=== PATIENT | female | born 1960 | race Caucasian/White ===

== ENCOUNTER 2024-07-04 07:19 | Inpatient (IN) | payer BC ==
[~2024-07-04] VITALS: Ht 162.6 cm; Wt 74.2 kg
[2024-07-04 08:22] LABS: BILIRUBIN,URINE MODERATE (Neg); CLARITY,URINE CLEAR (Clear); GLUCOSE, URINE NEGATIVE (Neg); KETONES,URINE TRACE mg/dl (Neg); LEUKOCYTE ESTERASE ,URINE NEGATIVE (Neg); NITRITES, URINE NEGATIVE (Neg); OCCULT BLOOD,URINE TRACE-INTACT (Neg); PROTEIN,URINE TRACE mg/dl (Neg); UROBILINOGEN,URINE 0.2 E.U/dL (0.2-1.0)
[2024-07-04 08:31] LABS: COLOR,URINE DARK YELLOW (Yellow)
[2024-07-04 08:32] LABS: MUCUS STRANDS FEW /LPF (Neg); SQUAMOUS EPITHELIAL CELL,UR FEW /LPF (FEW); UA COLLECTION TYPE CLN CATCH MIDSTREAM
[2024-07-04 08:33] LABS: BACTERIA,URINE 1+ /HPF (Neg); TRANSITIONAL EPI CELLS,URINE FEW /HPF
[2024-07-04 08:41] LABS: BASOPHILS % (AUTO) 0.1 % (0-1); EOSINOPHILS % (AUTO) 0.1 % (0-6); HEMATOCRIT 43.2 % (35.0-45.0); HEMOGLOBIN 14.3 g/dl (12.0-16.0); LYMPHOCYTES # (AUTO) 1.7 X10'3 (1.1-4.8); LYMPHOCYTES % (AUTO) 8.9 % (21-51); MEAN CORPUSCULAR HEMOGLOBIN 30.9 PG (27.0-31.0); MEAN CORPUSCULAR VOLUME 93.7 FL (78-98); MEAN PLATELET VOLUME 7.8 FL (7.4-10.4); MONOCYTES # (AUTO) 0.9 X10'3 (0-0.9); MONOCYTES % (AUTO) 4.9 % (2-12); NEUTROPHILS # (AUTO) 16.8 X10'3 (1.8-7.7); PLATELET COUNT 367 X10'3 (140-440); RED BLOOD COUNT 4.62 X10'6 (4.20-5.60); RED CELL DISTRIBUTION WIDTH 14.4 % (11.5-14.5); WHITE BLOOD COUNT 19.5 X10'3 (4.5-11.0)
[2024-07-04 08:50] LABS: ALANINE AMINOTRANSFERASE 492 U/L (12-78); ALBUMIN 3.2 G/DL (3.4-5.0); ALKALINE PHOSPHATASE 112 IU/L (46-116); ANION GAP 5 (8-16); ASPARTATE AMINO TRANSFERASE 291 U/L (10-37); BILIRUBIN,TOTAL 6.2 MG/DL (0.1-1.0); BLOOD UREA NITROGEN 9 MG/DL (7-18); BUN/CREATININE RATIO 8.3 (10.0-20.0); CALCIUM 8.5 MG/DL (8.5-10.1); CHLORIDE 101 MMOL/L (99-107); CREATININE 1.08 MG/DL (0.40-0.90); GLUCOSE 104 MG/DL (70-104); HDL CHOLESTEROL 77 MG/DL (35-60); LDL CHOLESTEROL 75 MG/DL (50-100); POTASSIUM 3.9 MMOL/L (3.5-5.1); SODIUM 136 MMOL/L (135-145); TOTAL CARBON DIOXIDE 30.1 MMOL/L (24-32); eCRCL 45 ML/MIN; eGFR 51 ML/MIN
[2024-07-04 08:52] LABS: CHOL/HDL RATIO 2.1 (0.00-4.99); CHOLESTEROL 162 MG/DL (0-200); TOTAL PROTEIN 6.5 G/DL (6.4-8.2); TRIGLYCERIDES 47 MG/DL (20-135)
[2024-07-04] MEDS: normal saline 1000ml 1,000 ML IV ONE (09:05)
[2024-07-04] MEDS: piperacillin/tazo 4.5gm/100ml 100 ML IV STA (09:36)
[2024-07-04] MEDS ORDERED: NO HOME MEDS (09:52)
[2024-07-04] MEDS ORDERED: magnesium Cl slow-release 64mg tablet PO PRN (10:00)
[2024-07-04] MEDS ORDERED: magnesium sulf-water 4G/100mL 100 ML IV PRN (10:00)
[2024-07-04] MEDS ORDERED: mag hydrox/Alum hydrox/simeth 30ml oral suspension PO PRN (10:00)
[2024-07-04] MEDS ORDERED: potassium Cl 20 mEq SR tablet PO PRN (10:00)
[2024-07-04] MEDS ORDERED: magnesium sulf-water 2g/50mL 50 ML IV PRN (10:00)
[2024-07-04] MEDS ORDERED: ondansetron/PF 4mg/2ml inj IV PRN ×2 (10:00→16:10)
[2024-07-04] MEDS ORDERED: magnesium hydroxide 30ml (MOM) UD suspension PO PRN (10:00)
[2024-07-04] MEDS ORDERED: potassium Cl 40MEQ/1/2NS 520ml 520 ML IV PRN (10:00)
[2024-07-04] MEDS: normal saline 1000ml 1,000 ML IV SCH (10:13)
[2024-07-04 10:16] LABS: APTT 26 SECONDS (22-32); INR 1.3 INR; PROTHROMBIN TIME 12.9 SECONDS (9.0-12.0)
[2024-07-04 10:38] LABS: MAGNESIUM 2.1 MG/DL (1.5-2.4)
[2024-07-04 10:49] LABS: HEMOGLOBIN A1C 5.5 % (4.5-6.2)
[2024-07-04 12:50] VITALS: BP 109/67; PULSE 95; RESP 16; TEMP 98.8; O2SAT 98
[2024-07-04 14:06] VITALS: RESP 16
[2024-07-04] MEDS ORDERED: iohexol 300mg/ml 100ml inj. ONE ×2 (15:12)
[2024-07-04] MEDS ORDERED: glucagon, human recombinant 1mg kit ONE (15:12)
[2024-07-04] MEDS ORDERED: morphine 4 MG/ML inj SYRINge IV PRN (16:10)
[2024-07-04] MEDS ORDERED: fentaNYL/PF 50MCG/1 ML 2ML syringe IV PRN ×2 (16:10)
[2024-07-04] MEDS ORDERED: morphine 2 MG/ML inj. syringe IV PRN (16:10)
[2024-07-04] MEDS ORDERED: ringers solution, lacted 1,000 ML IV SCH (16:10)
[2024-07-04] MEDS ORDERED: labetalol 20mg/4ml (5mg/ml) syringe IV PRN (16:10)
[2024-07-04] MEDS ORDERED: hydrALAZINE 20mg/ml inj. IV PRN (16:10)
[2024-07-04] MEDS ORDERED: propofol inj 20 ML IV ONE (16:20)
[2024-07-04] MEDS ORDERED: LIDOcaine 2% (20mg/ml) 5ml vial ONE (16:20)
[2024-07-04] MEDS ORDERED: fentaNYL/PF 50MCG/1 ML 2ML syringe ONE (16:20)
[2024-07-04] MEDS ORDERED: midazolam 1 mg/ML 2ml injection ONE (16:20)
[2024-07-04] MEDS ORDERED: succinylcholine 20mg/ml inj IV ONE (16:21)
[2024-07-04] MEDS ORDERED: ondansetron/PF 4mg/2ml inj ONE (16:21)
[2024-07-04] MEDS ORDERED: dexamethasone sod phosphate 4mg/ml inj. ONE (16:21)
[2024-07-04] MEDS: piperacillin/tazo 4.5gm/100ml 100 ML IV SCH (17:01)
[2024-07-04 17:22] VITALS: RESP 16; O2SAT 98
[2024-07-04] MEDS: acetaminophen 325mg tablet PO PRN (17:59)
[2024-07-04] MEDS: metoclopramide 5 mg/ml inj IV PRN (18:02)
[2024-07-04] MEDS: K and/or MAG REPLACEMENT MC SCH (19:44)
[2024-07-04 20:00] VITALS: RESP 16
[2024-07-04] MEDS ORDERED: heparin, porcine 5000 units/ml vial SQ SCH (20:00)
[2024-07-04 22:00] VITALS: BP 119/67; PULSE 80; RESP 16; TEMP 97.8; O2SAT 100
[2024-07-05] VITALS (22 sets, daily range): BP systolic 111–159; BP diastolic 62–87; PULSE 81–105; RESP 12–22; TEMP 97.7–98.5; O2SAT 92–99
[2024-07-05 07:28] LABS: BASOPHILS % (AUTO) 0.3 % (0-1); EOSINOPHILS # (AUTO) 0.2 X10'3 (0-0.9); EOSINOPHILS % (AUTO) 1.9 % (0-6); HEMATOCRIT 39.6 % (35.0-45.0); HEMOGLOBIN 13.6 g/dl (12.0-16.0); LYMPHOCYTES # (AUTO) 1.9 X10'3 (1.1-4.8); LYMPHOCYTES % (AUTO) 16.7 % (21-51); MEAN CORPUSCULAR HEMOGLOBIN 31.8 PG (27.0-31.0); MEAN CORPUSCULAR HGB CONC 34.4 g/dL (33.0-36.5); MEAN CORPUSCULAR VOLUME 92.3 FL (78-98); MEAN PLATELET VOLUME 7.8 FL (7.4-10.4); MONOCYTES # (AUTO) 0.5 X10'3 (0-0.9); MONOCYTES % (AUTO) 4.7 % (2-12); NEUTROPHILS # (AUTO) 8.7 X10'3 (1.8-7.7); NEUTROPHILS % (AUTO) 76.4 % (42-75); PLATELET COUNT 354 X10'3 (140-440); RED BLOOD COUNT 4.29 X10'6 (4.20-5.60); RED CELL DISTRIBUTION WIDTH 14.5 % (11.5-14.5); WHITE BLOOD COUNT 11.4 X10'3 (4.5-11.0)
[2024-07-05 07:51] LABS: ALANINE AMINOTRANSFERASE 277 U/L (12-78); ALBUMIN 2.8 G/DL (3.4-5.0); ALBUMIN/GLOBULIN RATIO 0.8 (1.1-1.5); ALKALINE PHOSPHATASE 104 IU/L (46-116); ANION GAP 6 (8-16); ASPARTATE AMINO TRANSFERASE 91 U/L (10-37); BILIRUBIN,TOTAL 2.1 MG/DL (0.1-1.0); BLOOD UREA NITROGEN 13 MG/DL (7-18); BUN/CREATININE RATIO 13.8 (10.0-20.0); CALCIUM 8.4 MG/DL (8.5-10.1); CHLORIDE 102 MMOL/L (99-107); CHOL/HDL RATIO 3.8 (0.00-4.99); CHOLESTEROL 180 MG/DL (0-200); CREATININE 0.94 MG/DL (0.40-0.90); GLUCOSE 74 MG/DL (70-104); HDL CHOLESTEROL 47 MG/DL (35-60); LDL CHOLESTEROL 92 MG/DL (50-100); MAGNESIUM 1.8 MG/DL (1.5-2.4); POTASSIUM 3.2 MMOL/L (3.5-5.1); SODIUM 136 MMOL/L (135-145); THYROID STIMULATING HORMONE 10.25 ulU/ml (0.34-4.50); TOTAL CARBON DIOXIDE 27.7 MMOL/L (24-32); TOTAL PROTEIN 6.2 G/DL (6.4-8.2); TRIGLYCERIDES 92 MG/DL (20-135); eCRCL 52 ML/MIN; eGFR 60 ML/MIN
[2024-07-05] MEDS: potassium Cl 20 mEq SR tablet PO PRN (08:05)
[2024-07-05] MEDS ORDERED: morphine 4 MG/ML inj SYRINge IV PRN ×2 (08:30→12:25)
[2024-07-05] MEDS: ringers solution, lacted 1,000 ML IV SCH ×2 (08:30→12:25)
[2024-07-05] MEDS ORDERED: labetalol 20mg/4ml (5mg/ml) syringe IV PRN ×2 (08:30→12:25)
[2024-07-05] MEDS ORDERED: enalaprilat dihydrate 2.5mg/2ml vial IV PRN (08:30)
[2024-07-05] MEDS ORDERED: proCHLORperazine 10 MG/2 ml inj IV PRN (08:30)
[2024-07-05] MEDS ORDERED: ondansetron/PF 4mg/2ml inj IV PRN ×2 (08:30→12:25)
[2024-07-05] MEDS ORDERED: BUPIVAcaine 2.5mg/ml inj 50ml vial (contains preservative) ONE (10:25)
[2024-07-05] MEDS: dextrose 5%-water 1,000 ML IV SCH (11:20)
[2024-07-05] MEDS ORDERED: fentaNYL/PF 50MCG/1 ML 2ML syringe ONE (12:20)
[2024-07-05] MEDS ORDERED: propofol inj 20 ML IV ONE (12:20)
[2024-07-05] MEDS ORDERED: midazolam 1 mg/ML 2ml injection ONE (12:20)
[2024-07-05] MEDS ORDERED: morphine 2 MG/ML inj. syringe IV PRN (12:25)
[2024-07-05] MEDS ORDERED: hydrALAZINE 20mg/ml inj. IV PRN (12:25)
[2024-07-05] MEDS ORDERED: sevoflurane 250ml liquid IH ONE (12:32)
[2024-07-05] MEDS ORDERED: rocuronium 10mg/ml inj IV ONE (12:44)
[2024-07-05] MEDS ORDERED: dexamethasone sod phosphate 4mg/ml inj. ONE (12:44)
[2024-07-05] MEDS ORDERED: ceFAZolin 1000mg inj ONE ×2 (12:57)
[2024-07-05] MEDS: BUPIVAcaine 2.5mg/ml inj 50ml vial (contains preservative) IJ ONE (13:50)
[2024-07-05] MEDS ORDERED: acetaminophen 1,000mg/100ml IV 100 ML IV ONE (13:50)
[2024-07-05] MEDS ORDERED: sugammadex 200mg/2ml injection IV ONE (13:50)
[2024-07-05] MEDS ORDERED: ondansetron/PF 4mg/2ml inj ONE (13:52)
[2024-07-05] MEDS: acetaminophen 1,000mg/100ml IV 100 ML IV ONE (14:05)
[2024-07-05] MEDS: morphine 2 MG/ML inj. syringe IV PRN ×2 (14:25→17:08)
[2024-07-05] MEDS: HYDROmorphone/PF 0.2 MG/ML SYRINGE IV PRN ×2 (14:32→14:55)
[2024-07-05] MEDS: normal saline 1000ml 1,000 ML IV SCH (17:00)
[2024-07-06 02:00] VITALS: BP 138/73; PULSE 87; RESP 18; TEMP 97.9; O2SAT 98
[2024-07-06] MEDS: docusate sod 100mg capsule PO PRN (02:39)
[2024-07-06] MEDS: morphine 2 MG/ML inj. syringe IV PRN (04:07)
[2024-07-06 06:00] VITALS: BP 122/74; PULSE 99; RESP 18; TEMP 98; O2SAT 97
[2024-07-06 06:53] LABS: BASOPHILS % (AUTO) 0.1 % (0-1); EOSINOPHILS % (AUTO) 0.1 % (0-6); HEMATOCRIT 40.1 % (35.0-45.0); HEMOGLOBIN 13.5 g/dl (12.0-16.0); LYMPHOCYTES # (AUTO) 1.9 X10'3 (1.1-4.8); LYMPHOCYTES % (AUTO) 13.7 % (21-51); MEAN CORPUSCULAR HEMOGLOBIN 31.3 PG (27.0-31.0); MEAN CORPUSCULAR HGB CONC 33.7 g/dL (33.0-36.5); MEAN CORPUSCULAR VOLUME 92.9 FL (78-98); MEAN PLATELET VOLUME 7.8 FL (7.4-10.4); MONOCYTES # (AUTO) 0.9 X10'3 (0-0.9); MONOCYTES % (AUTO) 6.4 % (2-12); NEUTROPHILS % (AUTO) 79.7 % (42-75); PLATELET COUNT 424 X10'3 (140-440); RED BLOOD COUNT 4.31 X10'6 (4.20-5.60); RED CELL DISTRIBUTION WIDTH 14.5 % (11.5-14.5); WHITE BLOOD COUNT 13.8 X10'3 (4.5-11.0)
[2024-07-06 07:14] LABS: ALANINE AMINOTRANSFERASE 184 U/L (12-78); ALBUMIN 2.6 G/DL (3.4-5.0); ALBUMIN/GLOBULIN RATIO 0.8 (1.1-1.5); ALKALINE PHOSPHATASE 97 IU/L (46-116); ANION GAP 5 (8-16); ASPARTATE AMINO TRANSFERASE 53 U/L (10-37); BILIRUBIN,TOTAL 1.1 MG/DL (0.1-1.0); BLOOD UREA NITROGEN 8 MG/DL (7-18); BUN/CREATININE RATIO 9.2 (10.0-20.0); CALCIUM 8.2 MG/DL (8.5-10.1); CHLORIDE 104 MMOL/L (99-107); CREATININE 0.87 MG/DL (0.40-0.90); GLUCOSE 122 MG/DL (70-104); MAGNESIUM 1.8 MG/DL (1.5-2.4); POTASSIUM 4.3 MMOL/L (3.5-5.1); SODIUM 138 MMOL/L (135-145); TOTAL CARBON DIOXIDE 29.1 MMOL/L (24-32); eCRCL 56 ML/MIN; eGFR 66 ML/MIN
[2024-07-06 08:00] VITALS: RESP 18; O2SAT 97
[2024-07-06 09:00] LABS: FREE T4 (FREE THYROXINE) 1.08 NG/DL (0.73-1.40)
== END 2024-07-06 12:05 | disposition home or self-care (01) | DRG 418 ==
LOC: ER 07:20 → ED HOLD 10:04 → ORTHO 4S 12:30
PROVIDERS: ADMIT Internal Medicine; ATTEND Internal Medicine
PROC: 0FT44ZZ Resection of Gallbladder, Percutaneous Endoscopic Approach (ICD-10-PCS; principal; 2024-07-05 12:32)
DX: K80.00 Calculus of gallbladder with acute cholecystitis without obstruction (principal); N17.9 Acute kidney failure, unspecified; N39.0 Urinary tract infection, site not specified; E80.6 Other disorders of bilirubin metabolism; R74.01 Elevation of levels of liver transaminase levels; D72.828 Other elevated white blood cell count; E87.6 Hypokalemia; R73.9 Hyperglycemia, unspecified; Z88.8 Allergy status to other drugs, medicaments and biological substances
CPT/HCPCS: Z7506; Z7508; 36415; 74181; 80053; 80061; 81001; 82948; 83036; 83735; 84439; 84443; 85025; 85610; 85730; 86885; 86900; 86901; 87081; 87088; 93005; 96365; 99285; A4215; A4618; A7000; G0378; J0131; J0330; J0690; J1100; J1171; J1610; J2003; J2250; J2270; J2405; J2543; J2704; J2765; J3010; J3490; J7030; J7040; J7070; J7120; Q9967